=== PATIENT | male | born 1970 | race Caucasian/White ===

== ENCOUNTER 2016-07-22 17:51 | Inpatient (IN) | payer OTHER ==
--- NOTE | 2016-07-22 18:03 | EDPHY ---
HPI/HX/ROS/PE/MDM Narrative: Chief complaint: Right hip pain HPI: 46-year-old male was skiing this afternoon when he cut the inner edge of his right ski causing his leg to be externally rotated. He felt a pop in his right groin with the sudden onset of severe pain there. He has been unable to weight bear since that time. He was brought down on a backboard by skilled laborer has come down be with EMS with his leg immobilized. No numbness or weakness. He has refused pain medication. Patient states at rest his pain is a 3/10, it is very severe with movement. EMS noted no rotation or shortening. Denies prior injury. No past medical history. No meds. No allergies. ROS: 10 point Review of Systems is negative except as noted in the HPI. Physical exam: Gen: Awake, Alert, No Distress HEENT: Nose: no rhinorrhea Eyes: PERRLA, EOMI Mouth: Moist mucosa Neck: Supple, no JVD Chest: nontender, lungs clear to auscultation Heart: S1, S2 normal, no murmur Abd: Soft, non-tender, no guarding Back: no CVA tenderness, no midline tenderness Ext: no edema, right leg is abducted in with normal rotation. He has tenderness over the right hip indeed in the right inguinal region reproducing presenting complaint. Leg is not shortened. He has got 2+ cap refill. Normal DP and PT pulses. Sensations intact in all dermatomes. Skin: no rash Neuro: CN II-XII intact, Sensation grossly intact, Strength 5/5 in bilateral upper and lower extremities ED Course: R Hip XR: Femoral Neck fracture. Case discussed with Dr. Stafford. He will admit to his service for surgical repair. Pt pain is controlled. General Initial Vital Signs: Initial Vital Signs Temperature (C) 37.5 C 07/22/16 18:03 Heart Rate 85 07/22/16 18:03 Respiratory Rate 16 07/22/16 18:03 Blood Pressure 137/85 H 07/22/16 18:03 O2 Sat (%) 98 07/22/16 18:03 O2 Delivery Mode Room Air Allergies/Adverse Reactions: No Known Allergies Allergy (Unverified 07/22/16 18:02) Home Medications: Medication Instructions Recorded NK [No Known Home Meds] 07/22/16 Departure - Departure Disposition: [facility] Clinical Impression: Fracture of hip Condition: Fair
--- NOTE | 2016-07-22 18:33 | DX ---
Right Hip, 2 Views Indication: Pain, injury while skiing. Comparisons: None. Technique: Steep inlet view of the pelvis is performed. Findings: The bony pelvis is unremarkable. No definite fracture. Mild lucency along the left posterio r sacrum is felt to be bowel gas. There is a low transcervical versus intertrochanteric fracture of t he right femur with superior posterior displacement of the distal fracture fragment. The femoral head remains within the acetabulum. IMPRESSION: Low transcervical versus intertrochanteric fracture of the right femur. Critical results relayed by Dr. Briggs to Dr. Lira on July 22, 2016 at 1829 hours
[2016-07-22] MEDS ORDERED: ACETAMINOPHEN 325 MG TAB PO PRN (18:56)
[2016-07-22] MEDS ORDERED: D5W 1/2 NS W/ 20 KCl/L 1,000 ML IV SCH (19:00)
[2016-07-22] MEDS ORDERED: ceFAZolin 2 GM/DEXTROSE 100 ML IV ONE (19:00)
--- NOTE | 2016-07-22 19:19 | GHP ---
[f rep st] HISTORY AND PHYSICAL DATE OF ADMISSION: 07/22/2016 DATE OF PROCEDURE: 07/22/2016. CHIEF COMPLAINT: Right hip fracture. HISTORY OF PRESENT ILLNESS: The patient is a 46-year-old gentleman who [facility]. He twisted his leg, felt immediate pop and pain across his hip, he was unable ambulate. Chanell sibley was brought to [facility] for further evaluation. X-rays demonstrated a femoral ne ck fracture which was displaced. No other fracture was noted. PAST MEDICAL HISTORY: Denies. He has a current cold. PAST SURGICAL HISTORY: Denies. MEDICATIONS: None. ALLERGIES: Denies. SOCIAL HISTORY: No tobacco. Minimal alcohol. REVIEW OF SYSTEMS: Negative for chest pain, shortness of breath, belly pain, back pain, numbness, ti ngling, and other joint-related complaints. OBJECTIVE: GENERAL: This is a healthy gentleman in no acute distress. HEENT: Normocephalic, atrau matic. EXTREMITIES: Bilateral upper extremities are unremarkable. There is no focal crepitus, tend erness, step-off, or deformity. He has a mild swelling across his right hip. He has tenderness over his right hip area and with any range of motion to his lower extremity. He has no tenderness to his knee, ankle. Lower extremity: Intact ankle plantarflexion, dorsiflexion, EHL function. Sensation is intact to light touch throughout bilateral lower extremities. He has no calf swelling or tenderne ss. IMAGING: Radiographs demonstrate a displaced right femoral neck fracture. IMPRESSION: Right femoral neck fracture. TREATMENT PLAN: I have recommended surgical intervention with closed reduction, percutaneous screw p lacement versus ORIF. I have outlined the surgical procedure, risks, benefits, and alternatives. He wished to proceed. Appropriate consent was signed and placed in patient's chart. /[id number]/MODL
[2016-07-22] MEDS ORDERED: CEFAZOLIN 2 GM/DEXTROSE/100 ML BAG IV ONE (20:47)
[2016-07-22 20:59] LABS: % IMMATURE GRANULYOCYTES 0.3 % (0.0-1.1); ABSOLUTE IMMATURE GRANULOCYTES 0.04 10^3/uL (0.00-0.10); ADD DIFF? NO; ADD MORPH? NO; ADD SCAN? NO; ATYPICAL LYMPHOCYTE FLAG 0 (0-99); FRAGMENT RBC FLAG 0 (0-99); HEMOGLOBIN 15.2 g/dL (13.7-17.5); LEFT SHIFT FLG 0 (0-99); LIPEMIA HEMOLYSIS FLAG 90 (0-99); MEAN CELL HEMOGLOBIN CONCENTR. 35.3 g/dL (32.4-36.7); MEAN CELL VOLUME 87.6 fL (81.5-99.8); MEAN PLATELET VOLUME 9.1 fL (8.7-11.7); PLATELET CLUMPS FLAG 10 (0-99); PLATELET COUNT 246 10^3/uL (150-400); RED BLOOD CELL COUNT 4.91 10^6/uL (4.40-6.38); RED CELL DISTRIBUTION WIDTH 11.9 % (11.5-15.2)
[2016-07-22] MEDS ORDERED: POLYMYXIN B SULFATE 500,000 UNIT/10 ML SYR IRR ONE (21:10)
[2016-07-22] MEDS ORDERED: BUPIVACAINE/EPI 0.5% 30 ML SDV ONE (21:10)
[2016-07-22] MEDS ORDERED: BACITRACIN 50,000 UNITS/10 ML SYR IRR ONE (21:10)
[2016-07-22 21:11] LABS: ANION GAP 9 mEq/L (8-16); CARBON DIOXIDE 28 mEq/l (22-31); CHLORIDE 104 mEq/L (97-110); CREATININE 0.9 mg/dL (0.7-1.3); GLOMERULAR FILTRATION RATE > 60; GLUCOSE 102 mg/dL (70-100); POTASSIUM 3.9 mEq/L (3.5-5.2); SODIUM 141 mEq/L (134-144)
[2016-07-22] MEDS ORDERED: ONDANSETRON 4 MG/2 ML VIAL IVP PRN (21:17)
[2016-07-22] MEDS ORDERED: fentaNYL 250 MCG/5 ML INJ ONE (21:22)
[2016-07-22] MEDS ORDERED: PROPOFOL/EMULSION 500 MG/50 ML BOTTLE IV ONE (21:22)
[2016-07-22] MEDS ORDERED: SUGAMMADEX SODIUM 200 MG/2 ML VIAL IVP ONE (22:32)
[2016-07-22] MEDS ORDERED: MEPERIDINE 25 MG/ML SYR ONE (23:03)
--- NOTE | 2016-07-22 23:12 | DX ---
Fluoroscopy greater than 1 hour. Clinical indication: hip pinning for fracture. Fluoroscopy time: 126.2 seconds. Dose: 35.67 mg. FINDINGS: 2 fluoroscopic images were obtained showing near-anatomic alignment post femoral pending. IMPRESSION: Fluoroscopy provided for pinning of intertrochanteric fracture.
--- NOTE | 2016-07-22 23:28 | DX ---
Single view pelvis. Clinical indication: postoperative follow-up. Comparison: July 22, 2016 at 1814 hours. FINDINGS: There is near-anatomic alignment of the right intertrochanteric fracture with 3 pins in ruddy ce. The remainder the pelvis is unremarkable. Impression: good anatomic alignment of the intertrochanteric fracture, right side post pinning.
[2016-07-23] MEDS: ceFAZolin 2 GM/DEXTROSE 100 ML IV SCH ×3 (01:26→16:02)
--- NOTE | 2016-07-23 06:41 | SOAPPROG ---
SOAP Progress Note Assessment/Plan: Assessment: s/p crpp right hip fx Plan: d/c if cleared by pt dvt precatuions f/u at two weeks 07/23/16 06:39 Subjective: no pain no cp or sob Objective: Vital Signs Temp Pulse Resp BP Pulse Ox 36.8 C 70 16 110/71 97 07/23/16 04:00 07/23/16 04:00 07/23/16 04:00 07/23/16 04:00 07/23/16 04:00 07/22/16 07/23/16 07/24/16 05:59 05:59 05:59 Output Total 2550 Balance -2550 dressing intact intact pf,df,ehl toes warm and pink neg homans louisa intact pf,d,f, ehl ICD10 Worksheet Patient Problems: Problems Problem Status Diagnosed Hip fracture Acute
--- NOTE | 2016-07-23 06:43 | PDIAF ---
- Diagnosis Diagnosis: right femoral neck fx Code Status: Full Code - Medication Management Discharge Medications: Medications to Continue on Transfer Enoxaparin [Lovenox] 30 mg SC DAILY #6 syr 07/23/16 [Last Taken Unknown] oxyCODONE/APAP 5/325 [Percocet 5/325 (*)] 1 - 2 tab PO Q3HRS PRN #70 tab [Last Taken Unknown] Discharge Medications: Refer to the Discharge Home Medication list for PRN reason. - Orders Services needed: Physical Therapy Diet Recommendation: no restrictions on diet Diet Texture: Regular Texture Diet Activity/Weight Bearing Restrictions: touch down non weight bearing. rom as flo. daily dressing changes. no soaking may shower without bandage. lovenox x 1 week then aspirin 325 mg po daily for six weeks. f/u at two weeks. seek attn for increasing pain or other focal complaint - Follow Up Care Current Providers and Referrals: Patient,NotPresent [Unknown] - As per Instructions
[2016-07-23 07:23] VITALS: TEMP 98.7
[2016-07-23] MEDS: OXYCODONE/APAP 5/325 TAB PO PRN ×3 (08:46→17:32)
[2016-07-23] MEDS ORDERED: ENOXAPARIN 30 MG/0.3 ML SYR SC SCH (09:00)
[2016-07-23 11:14] VITALS: BP 106/75; PULSE 78; RESP 18; O2SAT 91
== END 2016-07-23 17:42 | disposition home health service (06) | DRG 482 ==
LOC: EDUNIT# → F3N 19:31
PROVIDERS: ADMIT Orthopaedic Surgery; ATTEND Orthopaedic Surgery
PROC: 0QS635Z Reposition Right Upper Femur with External Fixation Device, Percutaneous Approach (ICD-10-PCS; principal; 2016-07-22 21:30)
DX: S72.001A Fracture of unspecified part of neck of right femur, initial encounter for closed fracture (principal); X50.0XXA Overexertion from strenuous movement or load, initial encounter; Y93.23 Activity, snow (alpine) (downhill) skiing, snowboarding, sledding, tobogganing and snow tubing; Y92.830 Public park as the place of occurrence of the external cause
CPT/HCPCS: 97116-GP; 97161-GP; 97165-GO; 97530-GP; C1713; C1769; J0690; J1650; J2704; J3010

== ENCOUNTER → 2016-09-03 | Outpatient (CLI) | payer OTHER | LOC: BMCIMAGING 09:55 | PROVIDERS: ATTEND Orthopaedic Surgery | DX: S72.001D Fracture of unspecified part of neck of right femur, subsequent encounter for closed fracture with routine healing (principal) ==

== ENCOUNTER → 2016-10-08 | Outpatient (CLI) | payer OTHER | LOC: BMCIMAGING 09:54 | PROVIDERS: ATTEND Orthopaedic Surgery | DX: S72.001D Fracture of unspecified part of neck of right femur, subsequent encounter for closed fracture with routine healing (principal) ==

== ENCOUNTER → 2016-12-31 | Outpatient (CLI) | payer OTHER | LOC: BMCIMAGING 09:55 | PROVIDERS: ATTEND Orthopaedic Surgery | DX: S72.011D Unspecified intracapsular fracture of right femur, subsequent encounter for closed fracture with routine healing (principal) ==